=== PATIENT | female | born 1995 | race Caucasian/White ===

== ENCOUNTER → 2021-06-26 | Outpatient (CLI) | payer OTHER ==
[~2021-06-26] MED LIST: ASPIRIN CHEWABL81 MG PO; LODINE CAP 300300 MG PO; PRENATAL VITAM1 EAC8 PO; VALTREX1000 MG PO; ZOFRAN ODT 4 MG4 MG SL
== END ==
LOC: KOH-I 10:55
DX: R10.11 Right upper quadrant pain (principal)
CPT/HCPCS: 76705

== ENCOUNTER 2022-01-09 16:50 | Emergency (ER) | payer OTHER | END 2022-01-09 17:16 | disposition left against medical advice (07) | LOC: ER1 16:50 | DX: Z53.21 Procedure and treatment not carried out due to patient leaving prior to being seen by health care provider (principal) ==